=== PATIENT | female | born 1940 ===

== ENCOUNTER → 2017-04-30 | Outpatient (CLI) | payer OTHER | END | disposition home or self-care (01) | LOC: C.LABMFLN 14:52 | PROVIDERS: ATTEND Family Medicine | DX: L01.03 Bullous impetigo (principal) ==

== ENCOUNTER → 2017-11-30 | Outpatient (CLI) | payer OTHER | END | disposition home or self-care (01) | LOC: C.LABMFLN 12:18 | PROVIDERS: ATTEND Family Medicine | DX: R30.0 Dysuria (principal) ==